=== PATIENT | male | born 1960 | race Hispanic/Latino ===

== ENCOUNTER 2020-03-15 14:44 | Emergency (ER) | payer OTHER ==
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
[2020-03-15] MEDS ORDERED: Ibuprofen 200 MG TAB ONE (15:57)
== END 2020-03-15 16:10 | disposition home or self-care (01) ==
LOC: NAV ERS 14:44
DX: S39.012A Strain of muscle, fascia and tendon of lower back, initial encounter (principal); S16.1XXA Strain of muscle, fascia and tendon at neck level, initial encounter; E03.9 Hypothyroidism, unspecified; Z79.899 Other long term (current) drug therapy; V43.92XA Unspecified car occupant injured in collision with other type car in traffic accident, initial encounter
CPT/HCPCS: 72125; 72131